=== PATIENT | female | born 1940 | race American Indian/Alaskan Native ===

== ENCOUNTER 2017-03-09 08:52 | Outpatient (CLI) | payer MEDICARE, OTHER ==
--- NOTE | 2017-03-09 10:42 | Mammography Report ---
Bilateral digital screening mammogram with CAD. Comparison studies are dated September 19, 2015, and October 04, 2014. Findings: The breasts have a fibrofatty appearance, and the overall pattern is stable. Benign subareolar left calcifications are stable. No masses, architectural distortion, or other suspicious findings are seen. Impression:: Stable benign findings. BI-RADS code: 2. Recommendation: Annual screening.
== END 2017-03-09 08:53 | disposition home or self-care (01) ==
LOC: MAMMO 08:52
PROVIDERS: ATTEND Internal Medicine
DX: Z12.31 Encounter for screening mammogram for malignant neoplasm of breast (principal)
CPT/HCPCS: 77067; G0202

== ENCOUNTER 2018-03-10 20:42 | Emergency (ER) | payer MEDICARE, OTHER ==
[2018-03-10] MEDS ORDERED: VANCOMYCIN 1,500 MG in NACL 0.9% 500 ML 500 ML IV ONE (21:12)
[2018-03-10] MEDS ORDERED: TYLENOL PO PRN (21:12)
--- NOTE | 2018-03-10 21:24 | Emergency Department Report ---
ED General Adult HPI - General Chief complaint: Weakness Stated complaint: L SIDE WEAKNESS Time Seen by Provider: 03/10/18 21:03 Source: patient, family, RN notes reviewed Mode of arrival: Stretcher Limitations: Altered Mental Status, Physical Limitation - History of Present Illness Initial comments: This is a 77-year-old female who was previously unknown to this provider. Patient recently had lumbar spine laminectomy performed at the [facility] at the end of January. She is brought to the hospital by EMS for evaluation of weakness. Patient comes from a local senior care where her physician there is Dr. Conley, Dr. Linda Ott. Family reports for at least the past 48 hours patient has been weak, lethargic, not acting like herself. Her symptoms are constant, they do not radiate anywhere, and he did not have exacerbating or relieving factors. In the emergency room, patient was found to be febrile and tachycardic and altered. She was tender over her surgical site. The surgical site was warm, with no redness, pus or streaking, and the inferior aspect of surgical site appeared to be mildly open. Given recent surgery, abnormal vital signs, patient had an emergent CT scan of the brain, CAT scan, abdomen and pelvis performed. Patient was treated empirically according to the sepsis pathway, with vancomycin, cefepime, IV fluids, and acetaminophen. A CT scan demonstrated a subacute parietal infarct. There is no hemorrhage. Given recent surgery, unknown onset of symptoms, the patient is not an endovascular candidate. The patient is also not a TPA candidate. CT scan of abdomen and pelvis suggest a spinal abscess. This hospital does not have neurology or neurosurgery available for consultation. I have therefore placed a page out to the [facility] transfer center to arrange transfer for definitive care and management. -: Gradual Consistency: constant Improves with: other Worsens with: other Associated Symptoms: confusion, fever/chills, loss of appetite, malaise, weakness - Related Data Home Medications Medication Instructions Recorded Confirmed Last Taken Bimatoprost [Lumigan 0.01%] 1 drop OP QPM 12/01/13 12/01/13 11/30/13 Brimonidine Tartrate [Alphagan P 10 ml INTRAOCULA BID 12/01/13 12/01/13 11/30/13 0.1%] Dorzolamide/Timolol/Pf [Cosopt Pf 1 drop OP BID 12/01/13 12/01/13 11/30/13 Eye Drops 22.3/6.8 mg/ml] Folic Acid [Folvite] 1 mg PO DAILY 12/01/13 12/01/13 12/01/13 Levothyroxine [Synthroid] 25 mcg PO DAILY 12/01/13 12/01/13 12/01/13 Methotrexate Sodium [Methotrexate] 2.5 mg PO 2XW 12/01/13 12/04/13 Unknown Omeprazole [PriLOSEC] 20 mg PO DAILY 12/01/13 12/01/13 12/01/13 Promethazine [Phenergan] 12.5 mg PO Q6H PRN 12/01/13 12/01/13 12/01/13 Triamter/Hctz 37.5-25 mg 1 PO DAILY 12/01/13 12/01/13 Unknown [Maxzide-25] Previous Rx's Medication Instructions Recorded Last Taken Type metroNIDAZOLE [Flagyl] 500 mg PO Q8HR #15 tablet 12/04/13 Unknown Rx Allergies Allergy/AdvReac Type Severity Reaction Status Date / Time powder in gloves Allergy Itching Uncoded 12/01/13 21:37 ED Review of Systems ROS: Stated complaint: L SIDE WEAKNESS Other details as noted in HPI Comment: Unobtainable due to pts medical conditions ED Past Medical Hx - Past Medical History Hx Hypertension: Yes Hx Renal Disease: Yes (renal insufficiency) Hx Arthritis: Yes Additional medical history: glaucoma - Surgical History Additional Surgical History: and incisional hernia surgery. Chago knee replacements - Social History Smoking Status: Never Smoker - Medications Home Medications: Home Medications Medication Instructions Recorded Confirmed Last Taken Type Bimatoprost [Lumigan 0.01%] 1 drop OP QPM 12/01/13 12/01/13 11/30/13 History Brimonidine Tartrate [Alphagan P 10 ml INTRAOCULA BID 12/01/13 12/01/13 History 0.1%] Dorzolamide/Timolol/Pf [Cosopt Pf 1 drop OP BID 12/01/13 12/01/13 11/30/13 History Eye Drops 22.3/6.8 mg/ml] Folic Acid [Folvite] 1 mg PO DAILY 12/01/13 12/01/13 12/01/13 History Levothyroxine [Synthroid] 25 mcg PO DAILY 12/01/13 12/01/13 12/01/13 History Methotrexate Sodium [Methotrexate] 2.5 mg PO 2XW 12/01/13 12/04/13 Unknown History Omeprazole [PriLOSEC] 20 mg PO DAILY 12/01/13 12/01/13 12/01/13 History Promethazine [Phenergan] 12.5 mg PO Q6H PRN 12/01/13 12/01/13 12/01/13 History Triamter/Hctz 37.5-25 mg 1 PO DAILY 12/01/13 12/01/13 Unknown History [Maxzide-25] metroNIDAZOLE [Flagyl] 500 mg PO Q8HR #15 tablet 12/04/13 Unknown Rx ED Physical Exam - General Limitations: Altered Mental Status, Physical Limitation General appearance: in no apparent distress, lethargic - Head Head exam: Present: atraumatic, normocephalic - Eye Eye exam: Present: normal appearance, EOMI - ENT ENT exam: Present: mucous membranes dry - Neck Neck exam: Present: normal inspection, full ROM. Absent: tenderness, meningismus - Respiratory Respiratory exam: Present: decreased breath sounds. Absent: respiratory distress - Cardiovascular Cardiovascular Exam: Present: normal rhythm, tachycardia, normal heart sounds. Absent: systolic murmur, diastolic murmur, rubs, gallop - GI/Abdominal GI/Abdominal exam: Present: soft, normal bowel sounds. Absent: distended, tenderness, guarding, rebound, rigid, pulsatile mass - Rectal Rectal exam: Present: normal inspection - Extremities Exam Extremities exam: Present: normal inspection, full ROM. Absent: pedal edema, joint swelling - Back Exam Back exam: Present: tenderness, paraspinal tenderness, vertebral tenderness - Neurological Exam Neurological exam: Present: alert, other (patient answer some questions but not all questions. She is moving 4 extremities. Sensation is intact to light touch ) - Psychiatric Psychiatric exam: Present: anxious - Skin Skin exam: Present: warm, dry, intact, normal color. Absent: rash ED Course Vital Signs 03/10/18 03/10/18 20:58 21:29 Temperature 102.8 F H 102.8 F H Pulse Rate 102 H 102 H Respiratory 15 15 Rate Blood Pressure 98/57 Blood Pressure 98/57 [Left] O2 Sat by Pulse 98 98 Oximetry - Reevaluation(s) Reevaluation #1: 03/11/18 00:23 Reevaluation #2: 03/11/18 00:37 Dr. Diallo, neuro critical care physician at [facility] accepts the patient to the neuro critical care unit. Case was also discussed with consulting neurosurgery, Dr. mack, who was amenable to transfer. Reevaluation #3: 03/11/18 00:37 Family informed of the CAT scan findings, and need for transfer for definitive care. ED Medical Decision Making - Lab Data Result diagrams: 03/10/18 21:23 03/10/18 21:23 Vital Signs 03/10/18 03/10/18 20:58 21:29 Temperature 102.8 F H 102.8 F H Pulse Rate 102 H 102 H Respiratory 15 15 Rate Blood Pressure 98/57 Blood Pressure 98/57 [Left] O2 Sat by Pulse 98 98 Oximetry Lab Results 03/10/18 03/10/18 03/10/18 Range/Units 21:23 21:23 21:23 WBC 12.8 H (4.5-11.0) K/mm3 RBC 3.06 L (3.65-5.03) M/mm3 Hgb 8.2 L (10.1-14.3) gm/dl Hct 25.4 L (30.3-42.9) % MCV 83 (79-97) fl MCH 27 L (28-32) pg MCHC 32 (30-34) % RDW 14.2 (13.2-15.2) % Plt Count 341 (140-440) K/mm3 Lymph % (Auto) 3.9 L (13.4-35.0) % Barber % (Auto) 7.3 (0.0-7.3) % Eos % (Auto) 0.1 (0.0-4.3) % Baso % (Auto) 0.1 (0.0-1.8) % Lymph # 0.5 L (1.2-5.4) K/mm3 Barber # 0.9 H (0.0-0.8) K/mm3 Eos # 0.0 (0.0-0.4) K/mm3 Baso # 0.0 (0.0-0.1) K/mm3 Seg Neutrophils % 88.6 H (40.0-70.0) % Seg Neutrophils # 11.4 H (1.8-7.7) K/mm3 ESR > 140.0 (0-20) mm/Hr APTT 29.5 (24.2-36.6) Sec. Sodium 133 L (137-145) mmol/L Potassium 4.3 (3.6-5.0) mmol/L Chloride 96.5 L (98-107) mmol/L Carbon Dioxide 22 (22-30) mmol/L Anion Gap 19 mmol/L BUN 38 H (7-17) mg/dL Creatinine 1.5 H (0.7-1.2) mg/dL Estimated GFR 41 ml/min BUN/Creatinine Ratio 25 % Glucose 166 H (65-100) mg/dL POC Glucose (70-105) Lactic Acid (0.7-2.0) mmol/L Calcium 9.1 (8.4-10.2) mg/dL Total Bilirubin 0.60 (0.1-1.2) mg/dL AST 69 H (5-40) units/L ALT 34 (7-56) units/L Alkaline Phosphatase 77 (35-129) units/L Total Creatine Kinase 63 (30-135) units/L C-Reactive Protein (0.00-1.30) mg/dL Total Protein 7.0 (6.3-8.2) g/dL Albumin 2.6 L (3.9-5) g/dL Albumin/Globulin Ratio 0.6 % Blood Type Antibody Screen 03/10/18 03/10/18 03/10/18 Range/Units 21:23 21:23 21:23 WBC (4.5-11.0) K/mm3 RBC (3.65-5.03) M/mm3 Hgb (10.1-14.3) gm/dl Hct (30.3-42.9) % MCV (79-97) fl MCH (28-32) pg MCHC (30-34) % RDW (13.2-15.2) % Plt Count (140-440) K/mm3 Lymph % (Auto) (13.4-35.0) % Barber % (Auto) (0.0-7.3) % Eos % (Auto) (0.0-4.3) % Baso % (Auto) (0.0-1.8) % Lymph # (1.2-5.4) K/mm3 Barber # (0.0-0.8) K/mm3 Eos # (0.0-0.4) K/mm3 Baso # (0.0-0.1) K/mm3 Seg Neutrophils % (40.0-70.0) % Seg Neutrophils # (1.8-7.7) K/mm3 ESR (0-20) mm/Hr APTT (24.2-36.6) Sec. Sodium (137-145) mmol/L Potassium (3.6-5.0) mmol/L Chloride (98-107) mmol/L Carbon Dioxide (22-30) mmol/L Anion Gap mmol/L BUN (7-17) mg/dL Creatinine (0.7-1.2) mg/dL Estimated GFR ml/min BUN/Creatinine Ratio % Glucose (65-100) mg/dL POC Glucose (70-105) Lactic Acid 1.00 (0.7-2.0) mmol/L Calcium (8.4-10.2) mg/dL Total Bilirubin (0.1-1.2) mg/dL AST (5-40) units/L ALT (7-56) units/L Alkaline Phosphatase (35-129) units/L Total Creatine Kinase (30-135) units/L C-Reactive Protein 37.80 H (0.00-1.30) mg/dL Total Protein (6.3-8.2) g/dL Albumin (3.9-5) g/dL Albumin/Globulin Ratio % Blood Type AB POSITIVE Antibody Screen Negative 03/10/18 Range/Units 21:47 WBC (4.5-11.0) K/mm3 RBC (3.65-5.03) M/mm3 Hgb (10.1-14.3) gm/dl Hct (30.3-42.9) % MCV (79-97) fl MCH (28-32) pg MCHC (30-34) % RDW (13.2-15.2) % Plt Count (140-440) K/mm3 Lymph % (Auto) (13.4-35.0) % Barber % (Auto) (0.0-7.3) % Eos % (Auto) (0.0-4.3) % Baso % (Auto) (0.0-1.8) % Lymph # (1.2-5.4) K/mm3 Barber # (0.0-0.8) K/mm3 Eos # (0.0-0.4) K/mm3 Baso # (0.0-0.1) K/mm3 Seg Neutrophils % (40.0-70.0) % Seg Neutrophils # (1.8-7.7) K/mm3 ESR (0-20) mm/Hr APTT (24.2-36.6) Sec. Sodium (137-145) mmol/L Potassium (3.6-5.0) mmol/L Chloride (98-107) mmol/L Carbon Dioxide (22-30) mmol/L Anion Gap mmol/L BUN (7-17) mg/dL Creatinine (0.7-1.2) mg/dL Estimated GFR ml/min BUN/Creatinine Ratio % Glucose (65-100) mg/dL POC Glucose 155 H (70-105) Lactic Acid (0.7-2.0) mmol/L Calcium (8.4-10.2) mg/dL Total Bilirubin (0.1-1.2) mg/dL AST (5-40) units/L ALT (7-56) units/L Alkaline Phosphatase (35-129) units/L Total Creatine Kinase (30-135) units/L C-Reactive Protein (0.00-1.30) mg/dL Total Protein (6.3-8.2) g/dL Albumin (3.9-5) g/dL Albumin/Globulin Ratio % Blood Type Antibody Screen - Radiology Data Radiology results: report reviewed, image reviewed Print Report Referring Physician: ROCKY ARAGON Patient Name: NATASHA HICKMAN Date of : 1940 Sex: Female Report Date: 2018-03-10 Report Status: Finalized Findings [facility] [address] [place] [address] Cat Scan Report Signed Patient: NATASHA HICKMAN MR#: [id number] : 1940 Acct:[id number] Age/Sex: 77 / F ADM Date: 03/10/18 Loc: ED Attending Dr: Ordering Physician: ROCKY ARAGON MD Date of Service: 03/10/18 Procedure(s): CT abdomen pelvis w con Accession Number(s): [id number] cc: ROCKY ARAGON MD FINAL REPORT PROCEDURE: CT ABDOMEN PELVIS W CON TECHNIQUE: Computerized axial tomography of the abdomen and pelvis was performed after the IV injection of iodinated nonionic contrast. HISTORY: sepsis COMPARISON: No prior studies are available for comparison. FINDINGS: There is mild cardiomegaly. Coronary arterial calcification is noted. Evaluation of the abdomen is limited due to streak artifacts from the arms., Spleen, and adrenal glands are within normal limits. Multiple simple cysts are noted in bilateral kidneys largest measuring 3.7 centimeters located in the lower pole right kidney. 3 millimeter nonobstructive calculus is noted in the right kidney. There is no obstructive uropathy. Urinary bladder is well distended with normal outlines. Aorta is of normal caliber. There is no free fluid or free air. Status post cholecystectomy. Small bowel loops are filled with fluid without bowel dilatation. Air-fluid levels are noted in ascending and transverse colon. Mild degree residual stool is noted splenic flexure and rectum. Transverse colon is mildly dilated measuring 6 centimeters in diameter. A definite obstructive lesion is not identified. There is a small hiatal hernia. Spinal stabilization hardware is identified. A few small pockets of air are identified at the site of laminectomy. There also appears to be an irregular fluid collection in the posterior spinal soft tissues measuring 9 centimeters x 4 centimeters x 8 centimeters in transverse, AP and craniocaudal dimensions extending from L3-L5. IMPRESSION: Posterior spinal fluid collection as described above extending from L3-L5 associated with small pockets of air is suspicious for abscess. Mildly dilated transverse colon with air-fluid levels and fluid filled small bowel loops most likely represent ileus. Cardiomegaly with coronary arterial calcification Transcribed By: [facility] [place] Dictated By: MONE FRYE Electronically Authenticated By: MONE FRYE Signed Date/Time: 03/10/182332 DD/ 32 Print Report Referring Physician: ROCKY ARAGON Patient Name: NATASHA HICKMAN Date of : 1940 Sex: Female Report Date: 2018-03-10 Report Status: Finalized Findings [facility] [address] [place] [address] XRay Report Signed Patient: NATASHA HICKMAN MR#: [id number] : 1940 Acct:[id number] Age/Sex: 77 / F ADM Date: 03/10/18 Loc: ED Attending Dr: Ordering Physician: ROCKY ARAGON MD Date of Service: 03/10/18 Procedure(s): XR chest 1V ap Accession Number(s): [id number] cc: ROCKY ARAGON MD Fluoro Time In Minutes: FINAL REPORT PROCEDURE: XR CHEST 1V AP TECHNIQUE: Chest radiograph anteroposterior view. CPT 52560 HISTORY: sepsis, pneumonia COMPARISON: No prior studies are available for comparison. FINDINGS: Patient is rotated to the right. Subsegment atelectatic changes are noted bilateral lung bases. There are no obvious mass lesions. Pleural spaces are clear. IMPRESSION: Limited study due to suboptimal positioning Subsegment atelectatic changes bilateral lung bases. Any underlying infiltrates cannot be excluded. A two view chest study is recommended whenever the patient's condition permits.. Transcribed By: [facility] [place] Dictated By: MONE FRYE Electronically Authenticated By: MONE FRYE Signed Date/Time: 03/10/182216 DD/ 16 TD/TT: 03/10/182216 Print Report Referring Physician: ROCKY ARAGON Patient Name: NATASHA HICKMAN Date of : 1940 Sex: Female Report Date: 2018-03-10 Report Status: Finalized Findings [address] [address] Cat Scan Report Signed Patient: NATASHA HICKMAN MR#: [id number] : 1940 Acct:[id number] Age/Sex: 77 / F ADM Date: 03/10/18 Loc: ED Attending Dr: Ordering Physician: ROCKY ARAGON MD Date of Service: 03/10/18 Procedure(s): CT head/brain wo con Accession Number(s): [id number] cc: ROCKY ARAGON MD FINAL REPORT PROCEDURE: CT HEAD/BRAIN WO CON TECHNIQUE: Computerized tomography of the head was performed without contrast material. HISTORY: ams sepsis COMPARISON: No prior studies are available for comparison. FINDINGS: Skull and scalp: Normal. Paranasal sinuses: Normal. Ventricles and subarachnoid spaces: Are prominent consistent with cerebral atrophy appropriate for patient age.. Cerebrum: There is an irregular hypodense lesion measuring 2.0 x 1.4 centimeters involving the anterior right parietal lobe with effacement of adjacent sulci. An extra-axial or intra-axial acute hemorrhage is not identified. There is no shift of midline structures.. Cerebellum and brainstem: No evidence of hemorrhage, acute infarction or mass. Vasculature: Athero sclerotic calcification is noted involving bilateral internal carotid and vertebral arteries.. Comments: None. IMPRESSION: An irregular hypodense lesion of right parietal lobe most likely represents the an acute/subacute infarct. MRI with diffusion-weighted imaging may be recommended. No evidence of acute intracranial hemorrhage. Transcribed By: [facility] Dictated By: MONE FRYE Electronically Authenticated By: MONE FRYE Signed Date/Time: 03/10/182249 DD/ 49 TD/TT: 03/10/182249 - Medical Decision Making Differential diagnosis, including but not limited to: Stroke, pneumonia, urinary tract infection, bacteremia, epidural abscess, spinal abscess Critical Care Time: Yes Critical care time in (mins) excluding proc time.: 45 Critical care attestation.: If time is entered above; I have spent that time in minutes in the direct care of this critically ill patient, excluding procedure time. ED Disposition Clinical Impression: Sepsis, Encephalopathy Disposition: DC/TX-70 ANOTHER TYPE HLTHCARE Is pt being admited?: No Does the pt Need Aspirin: No Condition: Fair Referrals: PRIMARY CARE, [Primary Care Provider] - 3-5 Days
[2018-03-10] MEDS ORDERED: NACL 0.9% 1000 ML IV ONE (21:33)
[2018-03-10] MEDS ORDERED: VANCOMYCIN 2,000 MG in NACL 0.9% 500 ML 500 ML IV ONE (21:33)
[2018-03-10 21:40] LABS: Basophils % (Auto) 0.1 % (0.0-1.8); Eosinophils % (Auto) 0.1 % (0.0-4.3); Hematocrit 25.4 % (30.3-42.9); Hemoglobin 8.2 gm/dl (10.1-14.3); Lymphocytes # (Auto) 0.5 K/mm3 (1.2-5.4); Lymphocytes % (Auto) 3.9 % (13.4-35.0); Mean Corpuscular HGB Conc 32 % (30-34); Mean Corpuscular Hemoglobin 27 pg (28-32); Mean Corpuscular Volume 83 fl (79-97); Monocytes # (Auto) 0.9 K/mm3 (0.0-0.8); Monocytes % (Auto) 7.3 % (0.0-7.3); Platelet Count 341 K/mm3 (140-440); Red Blood Count 3.06 M/mm3 (3.65-5.03); Red Cell Distribution Width 14.2 % (13.2-15.2)
[2018-03-10] MEDS ORDERED: MAXIPIME/NS 2 GM/100 ML 2 GM/100 ML BAG IV SCH (22:00)
[2018-03-10] MEDS ORDERED: MAXIPIME 2 GM in NACL 0.9% 20 ML IV ONE (22:00)
[2018-03-10 22:05] LABS: Erythrocyte Sedimentation Rate > 140.0 mm/Hr (0-20)
--- NOTE | 2018-03-10 22:23 | XRay Report ---
FINAL REPORT PROCEDURE: XR CHEST 1V AP TECHNIQUE: Chest radiograph anteroposterior view. CPT 97409 HISTORY: sepsis, pneumonia COMPARISON: No prior studies are available for comparison. FINDINGS: Patient is rotated to the right. Subsegment atelectatic changes are noted bilateral lung bases. There are no obvious mass lesions. Pleural spaces are clear. IMPRESSION: Limited study due to suboptimal positioning Subsegment atelectatic changes bilateral lung bases. Any underlying infiltrates cannot be excluded. A two view chest study is recommended whenever the patient's condition permits..
[2018-03-10] MEDS ORDERED: ATIVAN IV ONE (22:26)
[2018-03-10 22:37] LABS: Albumin 2.6 g/dL (3.9-5); Calcium 9.1 mg/dL (8.4-10.2)
--- NOTE | 2018-03-10 22:56 | Cat Scan Report ---
FINAL REPORT PROCEDURE: CT HEAD/BRAIN WO CON TECHNIQUE: Computerized tomography of the head was performed without contrast material. HISTORY: ams sepsis COMPARISON: No prior studies are available for comparison. FINDINGS: Skull and scalp: Normal. Paranasal sinuses: Normal. Ventricles and subarachnoid spaces: Are prominent consistent with cerebral atrophy appropriate for patient age.. Cerebrum: There is an irregular hypodense lesion measuring 2.0 x 1.4 centimeters involving the anterior right parietal lobe with effacement of adjacent sulci. An extra-axial or intra-axial acute hemorrhage is not identified. There is no shift of midline structures.. Cerebellum and brainstem: No evidence of hemorrhage, acute infarction or mass. Vasculature: Athero sclerotic calcification is noted involving bilateral internal carotid and vertebral arteries.. Comments: None. IMPRESSION: An irregular hypodense lesion of right parietal lobe most likely represents the an acute/subacute infarct. MRI with diffusion-weighted imaging may be recommended. No evidence of acute intracranial hemorrhage.
--- NOTE | 2018-03-10 23:40 | Cat Scan Report ---
FINAL REPORT PROCEDURE: CT ABDOMEN PELVIS W CON TECHNIQUE: Computerized axial tomography of the abdomen and pelvis was performed after the IV injection of iodinated nonionic contrast. HISTORY: sepsis COMPARISON: No prior studies are available for comparison. FINDINGS: There is mild cardiomegaly. Coronary arterial calcification is noted. Evaluation of the abdomen is limited due to streak artifacts from the arms., Spleen, and adrenal glands are within normal limits. Multiple simple cysts are noted in bilateral kidneys largest measuring 3.7 centimeters located in the lower pole right kidney. 3 millimeter nonobstructive calculus is noted in the right kidney. There is no obstructive uropathy. Urinary bladder is well distended with normal outlines. Aorta is of normal caliber. There is no free fluid or free air. Status post cholecystectomy. Small bowel loops are filled with fluid without bowel dilatation. Air-fluid levels are noted in ascending and transverse colon. Mild degree residual stool is noted splenic flexure and rectum. Transverse colon is mildly dilated measuring 6 centimeters in diameter. A definite obstructive lesion is not identified. There is a small hiatal hernia. Spinal stabilization hardware is identified. A few small pockets of air are identified at the site of laminectomy. There also appears to be an irregular fluid collection in the posterior spinal soft tissues measuring 9 centimeters x 4 centimeters x 8 centimeters in transverse, AP and craniocaudal dimensions extending from L3-L5. IMPRESSION: Posterior spinal fluid collection as described above extending from L3-L5 associated with small pockets of air is suspicious for abscess. Mildly dilated transverse colon with air-fluid levels and fluid filled small bowel loops most likely represent ileus. Cardiomegaly with coronary arterial calcification
[2018-03-11] MEDS ORDERED: KEPPRA 500 MG/NS 0.82% 100 ML 500 MG/100 ML BAG IV ONE (00:36)
[2018-03-11 03:36] VITALS: BP 103/53
== END 2018-03-11 03:51 | disposition other institution (70) ==
LOC: ED 20:42
DX: A41.9 Sepsis, unspecified organism (principal); G93.40 Encephalopathy, unspecified; I10 Essential (primary) hypertension; R10.9 Unspecified abdominal pain
CPT/HCPCS: 36415; 70450; 71045; 74177; 80053; 82140; 82550; 82962; 85025; 85652; 85730; 86140; 86850; 86900; 86901; 87040; 87076; 87186; 96365; 96366; 96368; 96375; 99291; J0692; J1953; J2060; J3370; J7030; J7040; Q9967

== ENCOUNTER 2018-07-27 09:50 | Outpatient (CLI) | payer MEDICARE, OTHER ==
--- NOTE | 2018-07-27 14:04 | Mammography Report ---
BILATERAL DIGITAL SCREENING MAMMOGRAM with CAD: 07/27/18 09:50:00 CLINICAL: Routine screening. COMPARISON:03/09/17 FINDINGS: The breasts are almost entirely fatty.Bilateral benign calcifications which are mostly vascular. No mass, architectural distortion or suspicious calcifications. IMPRESSION: No mammographic evidence of malignancy. BI-RADS CATEGORY: 2 - - Benign RECOMMENDATION: Routine mammographic screening in one year. COMMENT: Patient follow-up letters are generated by our [employer] application.
== END 2018-07-27 09:51 | disposition home or self-care (01) ==
LOC: MAMMO 09:50
PROVIDERS: ATTEND Internal Medicine
DX: Z12.31 Encounter for screening mammogram for malignant neoplasm of breast (principal); I10 Essential (primary) hypertension; M19.90 Unspecified osteoarthritis, unspecified site; E03.9 Hypothyroidism, unspecified
CPT/HCPCS: 77067

== ENCOUNTER 2019-06-27 13:05 | Outpatient (CLI) | payer MEDICARE, OTHER ==
--- NOTE | 2019-06-27 14:05 | XRay Report ---
CHEST 2 VIEWS INDICATION / CLINICAL INFORMATION: BRONCHITIS. COMPARISON: 12/02/2013. FINDINGS: SUPPORT DEVICES: None. HEART / MEDIASTINUM: The heart size and pulmonary vasculature are normal. The aorta is mildly tortuou s with calcification in the arch, but no evidence of aneurysm. LUNGS / PLEURA: No significant pulmonary or pleural abnormality. No pneumothorax. ADDITIONAL FINDINGS: No significant additional findings. IMPRESSION: No acute abnormality or significant change. Signer Name: Curry Chung MD Signed: 06/27/2019 2:00 PM Workstation Name: [id number]
== END 2019-06-27 13:06 | disposition home or self-care (01) ==
LOC: XRAY 13:05
PROVIDERS: ATTEND Internal Medicine
DX: J20.9 Acute bronchitis, unspecified (principal); E03.9 Hypothyroidism, unspecified; I10 Essential (primary) hypertension
CPT/HCPCS: 71046

== ENCOUNTER 2019-09-01 09:49 | Outpatient (CLI) | payer MEDICARE, OTHER ==
--- NOTE | 2019-09-04 12:35 | Mammography Report ---
DIGITAL SCREENING MAMMOGRAM WITH CAD, 09/01/2019 INDICATION: Routine screening mammography. TECHNIQUE: Digital bilateral 2D mammography was obtained in the craniocaudal and mediolateral obliq ue projections. This examination was interpreted with the benefit of Computer-Aided Detection analysi s. COMPARISON: 07/27/2018 FINDINGS: Breast Density: The breasts are almost entirely fatty. There is no evidence of dominant mass, suspicious calcifications or architectural distortion in eithe r breast. Bilateral benign calcifications which are mostly arterial. IMPRESSION: No mammographic evidence of malignancy. Follow up recommendation: Routine yearly BI-RADS Category 2: Benign. A "normal" or negative report should not discourage follow up or biopsy of a clinically significant f inding. A written summary of these findings will be mailed to the patient. The patient will be entered into a mammography reporting system which will generate a reminder letter for the patient's next appointmen t at the appropriate interval. The [employer] recommends yearly mammograms starting at age 40 and continuing as l pam as a woman is in good health. Breast MRI is recommended for women with an approximate 20-25% or greater lifetime risk of breast cancer, including women with a strong family history of breast or ova amandeep cancer or who have been treated for Hodgkin's disease. Signer Name: Braeden Herzog MD Signed: 09/04/2019 12:31 PM Workstation Name: [id number]
== END 2019-09-01 09:50 | disposition home or self-care (01) ==
LOC: MAMMO 09:49
PROVIDERS: ATTEND Internal Medicine
DX: Z12.31 Encounter for screening mammogram for malignant neoplasm of breast (principal)
CPT/HCPCS: 77067